=== PATIENT | male | born 1980 | race Caucasian/White ===

== ENCOUNTER 2019-03-05 08:53 | Inpatient (IN) | payer OTHER ==
[~2019-03-05] VITALS: Ht 172.7 cm; Wt 72.0 kg
--- NOTE | 2019-03-05 09:02 | NUR ---
PATIENT BROUGHT IN BY [facility] EMS TRANSFER FROM [facility] FOR POSSIBLE APPY. PER REPORT THE PATIENT DEVELOPED ABD PAIN THIS MORING. EVALUATION AT [facility] FOUND CONCERNS OF APPY NEEDED SURGICAL CONSULT AT [facility]. THE PATIENT ARRIVES ALERT, ORIENTED, WARM AND DRY.
[2019-03-05] MEDS ORDERED: SODIUM CHLORIDE 0.9% 1,000 ML IV ONE ×2 (09:19→09:21)
[2019-03-05] MEDS ORDERED: PLEASE ENTER ALLERGIES MC SCH (09:30)
[2019-03-05] MEDS ORDERED: MORPHINE SULFATE 4 MG/ML, 1ML IVPush PRN ×2 (09:30→17:30)
[2019-03-05] MEDS ORDERED: SODIUM CHLORIDE FLUSH 10ML SYR IVF PRN (09:30)
[2019-03-05] MEDS ORDERED: ONDANSETRON 2MG/ML, 2ML IVPush PRN (09:30)
--- NOTE | 2019-03-05 09:59 | NUR ---
REPORT CALLED TO MITZY SALEH.
[2019-03-05 10:21] VITALS: BP 143/85
[2019-03-05 13:35] VITALS: BP 144/79
[2019-03-05] MEDS ORDERED: MIDAZOLAM 1 MG/ML, 2ML ONE (17:06)
[2019-03-05] MEDS ORDERED: FENTANYL PF 250 MCG/5ML ONE (17:06)
[2019-03-05] MEDS ORDERED: SUCCINYLCHOLINE 20 MG/ML, 10ML ONE (17:28)
[2019-03-05] MEDS ORDERED: CEFOTETAN PMX 2GM/50ML 50 ML ONE (17:28)
[2019-03-05] MEDS ORDERED: GLYCOPYRROLATE 0.2MG/1ML, 5ML ONE (17:28)
[2019-03-05] MEDS ORDERED: NEOSTIGMINE 1 MG/ML, 10ML ONE (17:28)
[2019-03-05] MEDS ORDERED: CEFAZOLIN 1,000 MG ONE (17:28)
[2019-03-05] MEDS ORDERED: PROPOFOL 10 MG/ML, 20ML ONE (17:28)
[2019-03-05] MEDS ORDERED: ROCURONIUM 10MG/ML,5ML ONE (17:28)
[2019-03-05] MEDS ORDERED: ONDANSETRON 2MG/ML, 2ML IV PRN ×2 (17:30→20:30)
[2019-03-05] MEDS ORDERED: FENTANYL PF 100 MCG/2ML IV PRN (17:30)
[2019-03-05] MEDS ORDERED: MEPERIDINE/PF 25MG/ML,1ML IVPush PRN (17:30)
[2019-03-05] MEDS ORDERED: OXYcodone 5 MG/5 ML ORAL.SOL UDC PO PRN ×2 (17:30→21:00)
[2019-03-05] MEDS ORDERED: hydrALAzine 20 MG/ML, 1ML IV PRN ×3 (17:30→20:30)
[2019-03-05] MEDS ORDERED: HYDROmorphone 2 MG/ML, 1ML IVPush PRN ×2 (17:30→20:30)
[2019-03-05] MEDS ORDERED: LABETALOL 5MG/ML, 20ML IV PRN (17:30)
[2019-03-05] MEDS ORDERED: BUPIVACAINE/PF 0.5% INFIL ONE (17:56)
[2019-03-05] MEDS ORDERED: FENTANYL PF 100 MCG/2ML ONE (18:33)
[2019-03-05] MEDS ORDERED: HYDROmorphone 1 MG/ML, 1ML INJ ONE (18:33)
[2019-03-05] MEDS ORDERED: OXYcodone 5 MG/5 ML ORAL.SOL UDC ONE (18:34)
[2019-03-05] MEDS ORDERED: hydrALAzine 20 MG/ML, 1ML ONE (18:54)
[2019-03-05 19:38] VITALS: BP 144/84
[2019-03-05] MEDS ORDERED: DIPHENHYDRAMINE 25 MG CAPSULE PO PRN (20:30)
[2019-03-05] MEDS ORDERED: DIPHENHYDRAMINE 50 MG/ML, 1ML IV PRN (20:30)
[2019-03-05] MEDS ORDERED: ACETAMINOPHEN 325 MG TABLET PO PRN (20:30)
[2019-03-05] MEDS ORDERED: ACETAMINOPHEN 650 MG SUPP PR PRN (20:30)
[2019-03-05] MEDS ORDERED: KETOROLAC 30 MG/1 ML IV PRN (20:30)
[2019-03-05] MEDS ORDERED: LACTATED RINGERS 1,000 ML IV SCH (21:00)
== END 2019-03-05 22:03 | disposition home or self-care (01) | DRG 343 ==
LOC: ED 09:30 → 4NE 10:11 → ED 21:45 → 4NE 21:46
PROVIDERS: ADMIT Surgery; ATTEND Surgery
PROC: 0DTJ4ZZ Resection of Appendix, Percutaneous Endoscopic Approach (ICD-10-PCS; principal; 2019-03-05 17:00)
DX: K35.30 Acute appendicitis with localized peritonitis, without perforation or gangrene (principal)
CPT/HCPCS: 88304; G0378; J0690; J2250; J2704; J2710; J3010; J0330; J0360; J3490; J7030